=== PATIENT | female | born 1985 | race African-American/Black ===

== ENCOUNTER 2024-05-27 12:21 | Outpatient (CLI) | payer BC, SELFPAY ==
--- OUTSIDE RECORDS SUMMARY | 2024-05-27 13:12 | XMS_ITS | Encounter Summary ---
Author Organization [facility] Address [facility] [place] [address] Care Team Providers Care Promotions Officer Name Role Phone Orestes Mckeon MD Primary Care Provider Encounter Details Date Type Department Care Team (Late st Contact Info) Description 04/26/2022 MyCSabakatt Message Enc [facility] Medical Group Family Medicine - [place] [address], [address] [place] [phone] Orestes Mckeon MD [address] [place], [place] [phone] Medication Update/Request Social History Tobacco Use Types Packs/Day Years Used Date Smoking Tobacco: Former Cigarettes Q uit: 01/11/2019 Smokeless Tobacco: Never Comments:physician will disc uss if necessary Alcohol Use Standard Drinks/Week Comments Yes 0 (1 standard drink = 0.6 oz pur e alcohol) occassionally PHQ-2 Answer Date Recorded Patient Health Questionnaire-2 Score 0 03/29/2022 Comments No Sex and Gender Information Value Date Recorded Sex Assigned at Female 11/20/2022 6:49 AM CDT Legal Sex Female 7:45 PM CDT Gender Identity Female 04/26/2021 10:32 AM PICKLE PROCESSOR Sexual Orientation Straight 04/26/2021 10 :32 AM PICKLE PROCESSOR COVID-19 Exposure Response Date Recorded In the last 10 days, have yo u been in contact with someone who was confirmed or suspected to have Coronavirus/COVID-19? No / Unsure 03/29/2022 7:02 AM PICKLE PROCESSOR documented as of this encounter Plan of Treatment Upcoming Encounters Date Type Department Care Team (Late st Contact Info) Description 06/25/2024 3:00 PM CDT Office Visit [facility] Family Medicine - [place] [address], [address] [phone] Orestes Mckeon MD [address] [phone] documented as of this encounter Visit Diagnoses Not on filedocumented in this encounter Additional Health Concerns Infection Onset Date Last Indicated Resolved Time COVID-19 Rule Out 07/24/2022 07/24/2022 07/24/2022 8:29 AM CDT COVID-19 Rule Out 07/24/2022 07/24/2022 07/25/2022 1:25 PM CDT Assessment Noted Time PHQ-9 Depression Total Score: 0 11/14/19 21 1:02 PM CDT documented as of this encounter Care Teams Promotions Officer Relationship Specialty Start Date End Date Orestes Mckeon MD [address] [phone] PCP - General 09/01/16 documented as of this encounter
--- OUTSIDE RECORDS SUMMARY | 2024-05-27 13:12 | XMS_ITS | Clinical Summary ---
Author Organization [facility] Address [facility] [place] [address] Care Team Providers Care Motorcycle Mechanic Apprentice Name Role Phone Orestes Mckeon MD Primary Care Provider Allergies No known active allergies Medications ALBUTEROL SULFATE HFA 108 (90 Base) MCG/ACT inhalerIndication s:Moderate persistent asthma without complication (HHS/HCC) INHALE 2 PUFFS INTO THE LUNGS EVERY 6 HOURS NEEDED FOR COUGHING AND WHEEZING 18 g 1 0 Active budesonide-formot nadia (SYMBICORT) 160-4.5 MCG/ACT inhalerIndication s:Moderate persistent asthma without complication (HHS/HCC) Inhale 2 puffs into the lungs 2 (two) times daily. 30.6 g 3 1 Active hydrocortisone (PREPARATION H) 1 % creamIndications: External hemorrhoid Apply topically 2 (two) times daily. 45 g 3 1 Active Fluocinolone Acetonide Scalp 0.01 % Oil APPLY TOPICALLY TO THE SCALP EVERY DAY. DO NOT. RINSE OUT 2 Active ketoconazole (NIZORAL) 2 % cream APPLY TO FEET DAILY 2 Active Cholecalciferol (VITAMIN D3) 1.25 MG (57398 UT) TabIndications:Vi tamin D deficiency Take 1 tablet by mouth weekly. 12 tablet 3 Active metFORMIN (GLUCOPHAGE) 500 MG tabletIndications :Class 1 obesity due to excess calories without serious comorbidity with body mass index (BMI) of 30.0 to 30.9 in adult Take 1 tablet (500 mg total) by mouth 2 (two) times daily with meals. 180 tablet 3 3 Active escitalopram (LEXAPRO) 20 MG tabletIndications :Social anxiety disorder Take 1 tablet (20 mg total) by mouth daily. 90 tablet 3 3 Active hydrOXYzine (ATARAX) 25 MG tabletIndications :Social anxiety disorder Take 1 tablet (25 mg total) by mouth nightly. 30 tablet 3 3 Active Glucosamine-Chond roit-Vit C-Mn (GLUCOSAMINE 1500 COMPLEX) capsuleIndication s:Arthritis Take 1 capsule by mouth daily. 90 capsule 3 3 Active Norgestimate-Ethi nyl Estradiol (ORTHO TRI-CYCLEN LO) 0.18/0.215/0.25 MG-25 MCG tabletIndications :PCOS (polycystic ovarian syndrome) Take 1 tablet by mouth daily. 84 tablet 3 3 Active spironolactone (ALDACTONE) 100 MG tabletIndications :Essential hypertension TAKE 2 TABLETS BY MOUTH EVERY DAY 180 tablet 3 3 Active LORazepam (ATIVAN) 0.5 MG tabletIndications :Social anxiety disorder TAKE 1 TABLET(0.5 MG) BY MOUTH TWICE DAILY NEEDED FOR ANXIETY 20 tablet 1 4 Active buPROPion XL (WELLBUTRIN XL) 150 MG 24 hr tabletIndications :Social anxiety disorder,Nicotine dependence TAKE 1 TABLET(150 MG) BY MOUTH DAILY 90 tablet 3 4 Active metoprolol succinate ER (TOPROL-XL) 200 MG 24 hr tabletIndications :Essential hypertension TAKE 1 TABLET(200 MG) BY MOUTH DAILY 30 tablet 5 Active Active Problems Problem Noted Date Diagnosed Date History of psychiatric disorder 06/28/2022 Stage 2 chronic kidney disease 06/28/2022 History of ectopic 05/28/2021 Primary insomnia 04/27/2021 Chronic idiopathic constipation 03/24/2020 Irregular menstrual bleeding 03/24/2020 Essential hypertension 12/01/2019 Moderate persistent asthma without complication (HHS/HCC) 10/06/2019 Mixed hyperlipidemia 10/17/2017 Cigarette nicotine dependence without complicati on 10/17/2017 Social anxiety disorder 07/16/2016 PCOS (polycystic ovarian syndrome) 11/23/2013 Hyperthyroidism 04/02/2013 Vitamin D deficiency 04/02/2013 Resolved Problems Problem Noted Date Diagnosed Date Resolved Date Alcohol use 06/28/2022 07/01/2022 Lower abdominal pain 03/24/2020 022 Acute cystitis without hematuria 03/24/2020 06/22/2021 Amenorrhea 01/27/2013 06/22/2021 Fatigue 01/27/2013 06/22/2021 Over weight 01/27/2013 06/22/2021 Encounter for preventive health examination 12/14/2012 11/12/2019 Immunizations Name Administration Dates Next Due Fluzone 6 Months+ Quad (0.5 mL Prefilled Syringe ) 12/01/2019 Fluzone Adult - >Age 3 (Prefilled Syringe) 11/16 Influenza Adult (Generic) 01/01/2018 MODERNA COVID-19 BIVALENT (12+), MRNA, LNP-S, PF 01/03/2022 MODERNA COVID-19 (12+) MRNA, LNP-S, PF, 100 MCG/ 0.5 ML DOSE 06/24/2020,05/27/2020 MODERNA COVID-19 (TARGET NETWORK ANALYST ASHLEY CECIL), MRNA, LNP-S, PF, 50 MCG/ 0.25 ML DOSE 02/20/2021 Family History Medical History Relation Comments Hypertension Father Cancer Other Hypertension Paternal Aunt Stroke Paternal Grandfather Hypertension Paternal Grandmother Relation Status Comments Father Other Paternal Aunt Paternal Grandfather Paternal Grandmother Social History Tobacco Use Types Packs/Day Years Used Date Smoking Tobacco: Every Day Cigarettes 0.5 5 Started: 01/11/2014; Last attempted to quit: 01/11/2019 Passive Smoke Exposure: Current Smokeless Tobacco: Never Tobacco Cessation:Ready to Q uit: Yes; Counseling Given: Yes Comments:Planning to quit again for good! Physician will discuss smoking cessation Alcohol Use Standard Drinks/Week Comments Yes 0 (1 standard drink = 0.6 oz pur e alcohol) occassionally PHQ-2 Answer Date Recorded Patient Health Questionnaire-2 Score 4 06/28/2022 Comments No Sex and Gender Information Value Date Recorded Sex Assigned at Female 11/20/2022 6:49 AM CDT Legal Sex Female 7:45 PM CDT Gender Identity Female 04/26/2021 10:32 AM TOXICOLOGIST Sexual Orientation Straight 04/26/2021 10 :32 AM TOXICOLOGIST Last Filed Vital Signs Vital Sign Reading Time Taken Comments Blood Pressure 120/82 12/27/2022 10:23 AM CDT Pulse 63 12/27/2022 10:23 AM CDT Temperature 36.7 C (98 F) 12/27/2022 10:23 AM CDT Respiratory Rate 16 07/24/2022 7:50 AM CDT Oxygen Saturation 96% 12/27/2022 10:23 AM CDT Inhaled Oxygen Concentration - - Weight 72.6 kg (160 lb) 12/27/2022 10:23 AM CDT Height 165.1 cm (5' 5 ) 07/24/2022 7:50 AM CDT Body Mass Index 26.63 07/24/2022 7:50 AM CDT Plan of Treatment Upcoming Encounters Date Type Department Care Team (Late st Contact Info) Description 06/25/2024 3:00 PM CDT Office Visit [facility] Family Medicine - [place] [address], [address] [place] [phone] Linda, Orestes Angeles MD [address] [place] [phone] Health Maintenance Due Date Last Done Comments Cervical Cancer Screening Pap Smear (Age 30 to 64) Every 3 Years 1984 Pneumococcal Vaccine: Pediatrics (0 to 5 Years) and At-Risk Patients (6 to 64 Years) (1 of 2 - PCV) 01/05/1990 Hepatitis C 01/05/2002 DTaP, Tdap and Td Vaccines (1 - Tdap) 01/05/2003 Hepatitis B Vaccines (1 of 3 - 19+ 3-dose series) 01/05/2003 Cervical Cancer Screening Pap with HPV Testing (Age 30 to 64) Every 5 Years 01/05/2014 Cervical Cancer Screening with HPV 01/05/2014 Annual Physical 06/30/2021 06/30/2020 COVID-19 Vaccine ( season) 2023 12/27/2022, 01/03/2022, 02/20/2021, Additional history exists Influenza Adult (#1) 2023 12/27/2022, 01/03/2022, 02/20/2021, Additional history exists Mammogram Screening 2024 PHQ-2 (Physician [place]) 03/03/2024 06/28/2022 HPV Vaccines Aged Out No longer eligi ble based on patient's age to complete this topic Meningococcal B Vaccine Aged Out No l onger eligible based on patient's age to complete this topic Meningococcal Vaccine Aged Out No william andrés eligible based on patient's age to complete this topic RSV Immunizations Under 20 Months Aged Out No longer eligible based on patient's age to complete this topic Insurance [facility] Advance Directives * Full Code (Latest Code Status on File) Date Activated Date Inactivated Comments 05/28/2021 10:31 PM 05/29/2021 2:58 AM Care Teams Motorcycle Mechanic Apprentice Relationship Specialty Start Date End Date Orestes Mckeon MD [address] [place] [address] PCP - General 09/01/16
--- OUTSIDE RECORDS SUMMARY | 2024-05-27 13:12 | XMS_ITS | Encounter Summary ---
Author Organization [facility] Address [facility] [place] [address] Care Team Providers Care Pharmacy Scheduler Name Role Phone Orestes Mckeon MD Primary Care Provider Encounter Details Date Type Department Care Team (Late st Contact Info) Description 03/29/2022 MyCGaming Live TVt Message Enc [facility] Medical Group Family Medicine - [place] [address], [address] [place] [phone] Orestes Mckeon MD [address] [place], [place] [phone] Quitting smoking Social History Tobacco Use Types Packs/Day Years [...] CDT Gender Identity Female 04/26/2021 10:32 AM MEDIA RELATIONS MANAGER Sexual Orientation Straight 04/26/2021 10 :32 AM MEDIA RELATIONS MANAGER COVID-19 Exposure Response Date Recorded In the last 10 days, have yo u been in contact with someone who was confirmed or suspected to have Coronavirus/COVID-19? No / Unsure 03/29/2022 7:02 AM MEDIA RELATIONS MANAGER documented as of this encounter Progress Notes * Jozef Mcmillan MA - 04/01/2022 8:39 AM CST My chart message sent informing pt of Dr. Mckeon's previous message. A RELATIONS MANAGER * Jozef Mcmillan MA - 03/29/2022 3:00 PM CSTFrom: Emelia Kyle To: Dr. Orestes Mckeon Sent: 03/29/2022 8:40 AM MEDIA RELATIONS MANAGER Subject: Quitting smoking Hello, I meant to ask a question during my visit today. When Dr. Mckeon has a chance, please forward the below question for me. Can you please tell me what are the benefits of quitting smoking cigarettes now vs when I am 39 years old? Best regards, Analia A RELATIONS MANAGER documented in this encounter Plan of Treatment Upcoming Encounters Date Type Department Care Team (Late st Contact Info) Description 06/25/2024 3:00 PM CDT Office Visit [facility] Medical Group Family Medicine - [place] [address] [facility], [address] [place] [phone] Orestes Mckeon MD [address] [place] [phone] documented as of this encounter Visit Diagnoses Not on filedocumented in this encounter Additional Health Concerns Infection Onset Date Last Indicated Resolved Time COVID-19 Rule Out 07/24/2022 07/24/2022 07/24/2022 8:29 AM CDT COVID-19 Rule Out 07/24/2022 07/24/2022 07/25/2022 1:25 PM CDT Assessment Noted Time PHQ-9 Depression Total Score: 0 11/14/19 21 1:02 PM CDT documented as of this encounter Care Teams Pharmacy Scheduler Relationship Specialty Start Date End Date Orestes Mckeon MD [address] [phone] PCP - General 09/01/16 documented as of this encounter
--- OUTSIDE RECORDS SUMMARY | 2024-05-27 13:12 | XMS_ITS | Encounter Summary ---
Author Organization [facility] Address [facility] [place] [address] Care Team Providers Care Extension Agent Name Role Phone Orestes Mckeon MD Primary Care Provider Encounter Details Date Type Department Care Team (Late st Contact Info) Description 05/24/2020 Agorique Message Enc [facility] Family Medicine [place] [address], [address] [place] [phone] [facility] Provider RE: appointment Social History Tobacco Use Types Packs/Day Years Used Date Smoking Tobacco: Former Cigarettes Q uit: 01/11/2019 Smokeless Tobacco: Never Alcohol Use Standard Drinks/Week Comments Yes 0 (1 standard drink = 0.6 oz pur e alcohol) occassionally PHQ-2 Answer Date Recorded PHQ-2 Score 0 12/30/2019 Comments No Sex and Gender Information Value Date Recorded Sex Assigned at Female 11/20/2022 6:49 AM CDT Legal Sex Female 7:45 PM CDT Gender Identity Female 04/26/2021 10:32 AM TERRAZZO WORKER HELPER Sexual Orientation Straight 04/26/2021 10 :32 AM TERRAZZO WORKER HELPER documented as of this encounter Plan of Treatment Upcoming Encounters Date Type Department Care Team (Late Contact Info) Description 06/25/2024 3:00 PM CDT Office Visit [facility] [place] [address], [address] [place] [phone] Orestes Mckeon MD [address] [phone] documented as of this encounter Visit Diagnoses Not on filedocumented in this encounter Additional Health Concerns Infection Onset Date Last Indicated Resolved Time COVID-19 Rule Out 07/24/2022 07/24/2022 07/24/2022 8:29 AM CDT COVID-19 Rule Out 07/24/2022 07/24/2022 07/25/2022 1:25 PM CDT Assessment Noted Time PHQ-9 Depression Total Score: 1 12/30/19 20 9:02 AM CDT documented as of this encounter Care Teams Extension Agent Relationship Specialty Start Date End Date Orestes Mckeon MD [address] [phone] PCP - General 09/01/16 documented as of this encounter
--- OUTSIDE RECORDS SUMMARY | 2024-05-27 13:12 | XMS_ITS | Encounter Summary ---
Author Organization [facility] Address [facility] [place] [address] Care Team Providers Care Weaver Hand Name Role Phone Orestes Mckeon MD Primary Care Provider Encounter Details Date Type Department Care Team (Late st Contact Info) Description 04/01/2022 [email or web address] Message Enc [facility] Medical Group Family Medicine - [address], [address] [place] [phone] [place], [facility] Provider Response Social History Tobacco Use Types Packs/Day Years [...] CDT Gender Identity Female 04/26/2021 10:32 AM MANUFACTURING ENGINEERING INTERN Sexual Orientation Straight 04/26/2021 10 :32 AM MANUFACTURING ENGINEERING INTERN COVID-19 Exposure Response Date Recorded In the last 10 days, have yo u been in contact with someone who was confirmed or suspected to have Coronavirus/COVID-19? No / Unsure 03/29/2022 7:02 AM MANUFACTURING ENGINEERING INTERN documented as of this encounter Plan of Treatment Upcoming Encounters Date Type Department Care Team (Late st Contact Info) Description 06/25/2024 3:00 PM CDT Office Visit [facility] Medical Group Family Medicine - [place] [address], [address] [place] [phone] Orestes Mckeon MD [address] [facility] [address] [place], [place] [phone] documented as of this encounter Visit Diagnoses Not on filedocumented in this encounter Additional Health Concerns Infection Onset Date Last Indicated Resolved Time COVID-19 Rule Out 07/24/2022 07/24/2022 07/24/2022 8:29 AM CDT COVID-19 Rule Out 07/24/2022 07/24/2022 07/25/2022 1:25 PM CDT Assessment Noted Time PHQ-9 Depression Total Score: 0 11/14/19 21 1:02 PM CDT documented as of this encounter Care Teams Weaver Hand Relationship Specialty Start Date End Date Orestes Mckeon MD [address] [facility] [address] [place] [address] PCP - General 09/01/16 documented as of this encounter
--- OUTSIDE RECORDS SUMMARY | 2024-05-27 13:12 | XMS_ITS | Encounter Summary ---
Author Organization [facility] Address [address] [place] [id number] Care Team Providers Care Facing Grinder Name Role Phone Orestes Mckeon MD Primary Care Provider Encounter Details Date Type Department Care Team (Latest Contact Info) Description 04/06/2021 [employer] Message Enc [facility] [address] [facility], [address] [place] [phone] [facility] Provider Medication recommendations Social History Tobacco Use Types Packs/Day Years Used Date Smoking Tobacco: Former Cigarettes Q uit: 01/11/2019 Smokeless Tobacco: Never Comments:physician will disc uss if necessary Alcohol Use Standard Drinks/Week Comments Yes 0 (1 standard drink = 0.6 oz pur e alcohol) occassionally PHQ-2 Answer Date Recorded PHQ-2 Score - If the patient scores above 3, please move on to questions 3-9 0 11/13/2020 Comments No Sex and Gender Information Value Date Recorded Sex Assigned at Female 11/20/2022 6:49 AM CDT Legal Sex Female 7:45 PM CDT Gender Identity Female 04/26/2021 10:32 AM QUALITY AND RELIABILITY ENGINEER Sexual Orientation Straight 04/26/2021 10 :32 AM QUALITY AND RELIABILITY ENGINEER documented as of this encounter Plan of Treatment Upcoming Encounters Date Type Department Care Team (Late st Contact Info) Description 06/25/2024 3:00 PM CDT Office Visit [facility] [address] [facility], [address] [place] [phone] Orestes Mckeon MD [address] [phone] documented as of this encounter Visit Diagnoses Not on filedocumented in this encounter Additional Health Concerns Infection Onset Date Last Indicated Resolved Time COVID-19 Rule Out 07/24/2022 07/24/2022 07/24/2022 8:29 AM CDT COVID-19 Rule Out 07/24/2022 07/24/2022 07/25/2022 1:25 PM CDT Assessment Noted Time PHQ-9 Depression Total Score: 0 11/14/19 21 1:02 PM CDT documented as of this encounter Care Teams Facing Grinder Relationship Specialty Start Date End Date Orestes Mckeon MD [address] [phone] PCP - General 09/01/16 documented as of this encounter
--- OUTSIDE RECORDS SUMMARY | 2024-05-27 13:12 | XMS_ITS | Encounter Summary ---
Author Organization [facility] Address [facility] [place] [address] Care Team Providers Care Group Care Worker Name Role Phone Orestes Mckeon MD Primary Care Provider Encounter Details Date Type Department Care Team (Late st Contact Info) Description 07/30/2022 [employer] Message Enc [facility] Medical Group Family Medicine - [address], [address] [place] [phone] [place], [facility] Provider Response. Social History Tobacco Use Types Packs/Day Years Used Date Smoking Tobacco: Every Day Cigarettes 0.5 5 Started: 01/11/2014; Last attempted to quit: 01/11/2019 Passive Smoke Exposure: Current Smokeless Tobacco: Never Comments:Planning to quit ag ain for good! Alcohol Use Standard Drinks/Week Comments Yes 0 (1 standard drink = 0.6 oz pur e alcohol) occassionally PHQ-2 Answer Date Recorded Patient Health Questionnaire-2 Score 4 06/28/2022 Comments No Sex and Gender Information Value Date Recorded Sex Assigned at Female 11/20/2022 6:49 AM CDT Legal Sex Female 7:45 PM CDT Gender Identity Female 04/26/2021 10:32 AM FOOTWEAR SALES COORDINATOR Sexual Orientation Straight 04/26/2021 10 :32 AM FOOTWEAR SALES COORDINATOR COVID-19 Exposure Response Date Recorded In the last 10 days, have yo u been in contact with someone who was confirmed or suspected to have Coronavirus/COVID-19? No / Unsure 07/24/2022 7:45 AM CDT documented as of this encounter Plan of Treatment Upcoming Encounters Date Type Department Care Team (Late st Contact Info) Description 06/25/2024 3:00 PM CDT Office Visit [facility] Medical Group Family Medicine - [place] [address], [address] [place] [phone] Orestes Mckeon MD [address] [phone] documented as of this encounter Visit Diagnoses Not on filedocumented in this encounter Additional Health Concerns Assessment Noted Time PHQ-9 Depression Total Score: 9 06/29/19 23 3:13 PM CDT documented as of this encounter Care Teams Group Care Worker Relationship Specialty Start Date End Date Orestes Mckeon MD [address] [phone] PCP - General 09/01/16 documented as of this encounter
--- OUTSIDE RECORDS SUMMARY | 2024-05-27 13:12 | XMS_ITS | Encounter Summary ---
Author Organization [facility] Address [facility] [place] [address] Care Team Providers Care Head Of Measurement & Insights Name Role Phone Orestes Mckeon MD Primary Care Provider Encounter Details Date Type Department Care Team (Late st Contact Info) Description 08/28/2022 MyChart Message Enc [facility] Medical [facility] [address] [place], [place] [phone] Mychart, [facility] Provider Air Quality Message Social History Tobacco Use Types Packs/Day Years [...] CDT Gender Identity Female 04/26/2021 10:32 AM PROOF CARRIER Sexual Orientation Straight 04/26/2021 10 :32 AM PROOF CARRIER documented as of this encounter Plan of Treatment Upcoming Encounters Date Type Department Care Team (Late st Contact Info) Description 06/25/2024 3:00 PM CDT Office Visit [facility] Medical [facility] Family Medicine - [place] [address] [facility], [address] [place] [phone] Orestes Mckeon MD [address] [phone] documented as of this encounter Visit Diagnoses Not on filedocumented in this encounter Additional Health Concerns Assessment Noted Time PHQ-9 Depression Total Score: 9 06/29/19 23 3:13 PM CDT documented as of this encounter Care Teams Head Of Measurement & Insights Relationship Specialty Start Date End Date Orestes Mckeon MD [address] [phone] PCP - General 09/01/16 documented as of this encounter
--- OUTSIDE RECORDS SUMMARY | 2024-05-27 13:12 | XMS_ITS | Encounter Summary ---
Author Organization [facility] Address [facility] [place] [address] Care Team Providers Care Field Software Engineer Name Role Phone Orestes Mckeon MD Primary Care Provider Encounter Details Date Type Department Care Team (Late st Contact Info) Description 04/10/2022 MyCCheckPass Business Solutionst Message Enc [facility] Family Medicine - [place] [address] [place] [phone] Orestes Mckeon MD [address] [place], [place] [phone] Medication Request Social History Tobacco Use Types Packs/Day Years [...] CDT Gender Identity Female 04/26/2021 10:32 AM LOCOMOTIVE MECHANIC Sexual Orientation Straight 04/26/2021 10 :32 AM LOCOMOTIVE MECHANIC COVID-19 Exposure Response Date Recorded In the last 10 days, have yo u been in contact with someone who was confirmed or suspected to have Coronavirus/COVID-19? No / Unsure 03/29/2022 7:02 AM LOCOMOTIVE MECHANIC documented as of this encounter Plan of Treatment Upcoming Encounters Date Type Department Care Team (Late st Contact Info) Description 06/25/2024 3:00 PM CDT Office Visit [facility] Family Medicine - [place] [address], [address] [address] Orestes Mckeon MD [address] [address] documented as of this encounter Visit Diagnoses Not on filedocumented in this encounter Additional Health Concerns Infection Onset Date Last Indicated Resolved Time COVID-19 Rule Out 07/24/2022 07/24/2022 07/24/2022 8:29 AM CDT COVID-19 Rule Out 07/24/2022 07/24/2022 07/25/2022 1:25 PM CDT Assessment Noted Time PHQ-9 Depression Total Score: 0 11/14/19 21 1:02 PM CDT documented as of this encounter Care Teams Field Software Engineer Relationship Specialty Start Date End Date Orestes Mckeon MD [address] [phone] PCP - General 09/01/16 documented as of this encounter
--- OUTSIDE RECORDS SUMMARY | 2024-05-27 13:12 | XMS_ITS | Encounter Summary ---
Author Organization [facility] Address [facility] [place] [address] Care Team Providers Care Poultry Picker Name Role Phone Orestes Mckeon MD Primary Care Provider Encounter Details Date Type Department Care Team (Late st Contact Info) Description 07/26/2022 BuzzVote Message Enc [facility] Family Medicine - [place] [address] [place] [phone] [place], [facility] Provider COVID PCR Social History Tobacco Use Types Packs/Day Years [...] CDT Gender Identity Female 04/26/2021 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 No / Unsure 07/24/2022 7:45 AM CDT documented as of this encounter Progress Notes * Jozef Mcmillan MA - 07/30/2022 12:50 PM CDT Bridgette Kapoor, If Teodora doesn't have symptoms of a sore throat, pain, or fever. Then there's no need for an appointment. Continue to monitor her and if symptoms develop we will be happy to see her. Have a great day. documented in this encounter Plan of Treatment Upcoming Encounters Date Type Department Care Team (Late st Contact Info) Description 06/25/2024 3:00 PM CDT Office Visit [facility] Family Medicine - [place] [address] [place] [address] Orestes Mckeon MD [address] [id number] documented as of this encounter Visit Diagnoses Not on filedocumented in this encounter Additional Health Concerns Assessment Noted Time PHQ-9 Depression Total Score: 9 06/29/19 23 3:13 PM CDT documented as of this encounter Care Teams Poultry Picker Relationship Specialty Start Date End Date Orestes Mckeon MD [address] [phone] PCP - General 09/01/16 documented as of this encounter
--- OUTSIDE RECORDS SUMMARY | 2024-05-27 13:12 | XMS_ITS | Encounter Summary ---
Author Organization [facility] Address [facility] [place] [address] Care Team Providers Care Hydraulic Assembler Name Role Phone Orestes Mckeon MD Primary Care Provider Encounter Details Date Type Department Care Team (Late st Contact Info) Description 07/28/2020 MyCMavrxt Message Enc [facility] Family Medicine - [place] [address] [address] [facility] [place] [address] Orestes Mcekon MD [address] [place], [place] [phone] RE: Question Social History Tobacco Use Types Packs/Day Years Used Date Smoking Tobacco: Former Cigarettes Q uit: 01/11/2019 Smokeless Tobacco: Never Alcohol Use Standard Drinks/Week Comments Yes 0 (1 standard drink = 0.6 oz pur e alcohol) occassionally PHQ-2 Answer Date Recorded PHQ-2 Score - If the patient scores above 3, please move on to questions 3-9 0 06/30/2020 Comments No Sex and Gender Information Value Date Recorded Sex Assigned at Female 11/20/2022 6:49 AM CDT Legal Sex Female 7:45 PM CDT Gender Identity Female 04/26/2021 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 No / Unsure 06/30/2020 11:28 AM CDT documented as of this encounter Plan of Treatment Upcoming Encounters Date Type Department Care Team (Late st Contact Info) Description 06/25/2024 3:00 PM CDT Office Visit [facility] Family Medicine - [place] [address] [place] [address] Orestes Mckeon MD [address] [address] documented as of this encounter Visit Diagnoses Not on filedocumented in this encounter Additional Health Concerns Infection Onset Date Last Indicated Resolved Time COVID-19 Rule Out 07/24/2022 07/24/2022 07/24/2022 8:29 AM CDT COVID-19 Rule Out 07/24/2022 07/24/2022 07/25/2022 1:25 PM CDT Assessment Noted Time PHQ-9 Depression Total Score: 1 12/30/19 20 9:02 AM CDT documented as of this encounter Care Teams Hydraulic Assembler Relationship Specialty Start Date End Date Orestes Mckeon MD [address], [place] [phone] PCP - General 09/01/16 documented as of this encounter
--- OUTSIDE RECORDS SUMMARY | 2024-05-27 13:12 | XMS_ITS | Encounter Summary ---
Author Organization [facility] Address [facility] [place] [address] Care Team Providers Care Camp Maintenance Supervisor Name Role Phone Orestes Mckeon MD Primary Care Provider Encounter Details Date Type Department Care Team (Late st Contact Info) Description 06/22/2020 MyCSwypet Message Enc [facility] Family Medicine - [place] [address], [address] [place] [phone] Orestes Mckeon MD [address] [place], [place] [phone] RE: Question Social History Tobacco Use Types [...] CDT Gender Identity Female 04/26/2021 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 documented in this encounter Plan of Treatment Upcoming Encounters Date Type Department Care Team (Late st Contact Info) Description 06/25/2024 3:00 PM CDT Office Visit [facility] Family Medicine - [place] [address], [address] ' [place] [address] Orestes Mckeon MD [address] [address] documented as of this encounter Visit Diagnoses Not on filedocumented in this encounter Additional Health Concerns Infection Onset Date Last Indicated Resolved Time COVID-19 Rule Out 07/24/2022 07/24/2022 07/24/2022 8:29 AM CDT COVID-19 Rule Out 07/24/2022 07/24/2022 07/25/2022 1:25 PM CDT Assessment Noted Time PHQ-9 Depression Total Score: 1 12/30/19 20 9:02 AM CDT documented as of this encounter Care Teams Camp Maintenance Supervisor Relationship Specialty Start Date End Date Orestes Mckeon MD [address] [address] PCP - General 09/01/16 documented as of this encounter
--- OUTSIDE RECORDS SUMMARY | 2024-05-27 13:12 | XMS_ITS | Encounter Summary ---
Author Organization [facility] Address [facility] [place] [address] Care Team Providers Care Field Operations Technician Name Role Phone Orestes Mckeon MD Primary Care Provider Encounter Details Date Type Department Care Team (Late st Contact Info) Description 03/11/2022 [employer] Message Enc [facility] Family Medicine - [address], [address] [place] [phone] [place], [facility] Provider lab results Social History Tobacco Use Types Packs/Day Years Used Date Smoking Tobacco: Former Cigarettes Q uit: 01/11/2019 Smokeless Tobacco: Never Comments:physician will disc uss if necessary Alcohol Use Standard Drinks/Week Comments Yes 0 (1 standard drink = 0.6 oz pur e alcohol) occassionally PHQ-2 Answer Date Recorded Patient Health Questionnaire-2 Score 0 02/26/2022 Comments No Sex and Gender Information Value Date Recorded Sex Assigned at Female 11/20/2022 6:49 AM CDT Legal Sex Female 7:45 PM CDT Gender Identity Female 04/26/2021 10:32 AM PROFILER HAND Sexual Orientation Straight 04/26/2021 10 :32 AM PROFILER HAND COVID-19 Exposure Response Date Recorded In the last 10 days, have yo u been in contact with someone who was confirmed or suspected to have Coronavirus/COVID-19? No / Unsure 02/27/2022 1:31 PM PROFILER HAND documented as of this encounter Plan of Treatment Upcoming Encounters Date Type Department Care Team (Late st Contact Info) Description 06/25/2024 3:00 PM CDT Office Visit [facility] Family Medicine - [place] [address], [address] [place] [phone] Orestes Mckeon MD [address] [place], [place] [phone] documented as of this encounter Visit Diagnoses Not on filedocumented in this encounter Additional Health Concerns Infection Onset Date Last Indicated Resolved Time COVID-19 Rule Out 07/24/2022 07/24/2022 07/24/2022 8:29 AM CDT COVID-19 Rule Out 07/24/2022 07/24/2022 07/25/2022 1:25 PM CDT Assessment Noted Time PHQ-9 Depression Total Score: 0 11/14/19 21 1:02 PM CDT documented as of this encounter Care Teams Field Operations Technician Relationship Specialty Start Date End Date Orestes Mckeon MD [address] [place] [address] PCP - General 09/01/16 documented as of this encounter
--- OUTSIDE RECORDS SUMMARY | 2024-05-27 13:12 | XMS_ITS | Encounter Summary ---
Author Organization [facility] Address [facility] [place] [address] Care Team Providers Care Aerosol Line Operator Name Role Phone Orestes Mckeon MD Primary Care Provider Encounter Details Date Type Department Care Team (Late st Contact Info) Description 08/18/2021 [employer] Message [facility] Patient Accounts [address] [place] [address] [employer], [facility] Provider Declined Auto Payment Social History Tobacco Use Types Packs/Day Years [...] CDT Gender Identity Female 04/26/2021 10:32 AM PHOTOGRAPHIC PRINTER Sexual Orientation Straight 04/26/2021 10 :32 AM PHOTOGRAPHIC PRINTER COVID-19 Exposure Response Date Recorded In the last 10 days, have yo u been in contact with someone who was confirmed or suspected to have Coronavirus/COVID-19? No / Unsure 08/19/2021 5:58 PM CDT documented as of this encounter Plan of Treatment Upcoming Encounters Date Type Department Care Team (Late st Contact Info) Description 06/25/2024 3:00 PM CDT Office Visit [facility] Family Medicine - [place] [address] [place] [address] Orestes Mckeon MD [address] [place], [place] [phone] documented as of this encounter Visit Diagnoses Not on filedocumented in this encounter Additional Health Concerns Infection Onset Date Last Indicated Resolved Time COVID-19 Rule Out 07/24/2022 07/24/2022 07/24/2022 8:29 AM CDT COVID-19 Rule Out 07/24/2022 07/24/2022 07/25/2022 1:25 PM CDT Assessment Noted Time PHQ-9 Depression Total Score: 0 11/14/19 21 1:02 PM CDT documented as of this encounter Care Teams Aerosol Line Operator Relationship Specialty Start Date End Date Orestes Mckeon MD [address] [facility] [place] [address] PCP - General 09/01/16 documented as of this encounter
[2024-05-27 13:35] LABS: HIV 1/2 Ab P24 Ag Result Negative (Negative)
[2024-05-27 13:38] LABS: Syphilis IgG/IgM Antibody Negative (Negative)
[2024-05-27 14:00] LABS: Hepatitis C Virus Antibody Negative (Negative)
[2024-05-29 01:39] LABS: Hepatitis Be Antibody NON-REACTIVE (NON-REACTIVE)
== END 2024-05-27 12:22 | disposition home or self-care (01) ==
LOC: ANHLAB 12:26
PROVIDERS: Visit Provider Nurse Practitioner Obstetrics & Gynecology
DX: Z11.3 Encounter for screening for infections with a predominantly sexual mode of transmission (principal)
CPT/HCPCS: 36415; 86593; 86703; 86707; 86803; G0432